=== PATIENT | female | born 1995 | race Caucasian/White ===

== ENCOUNTER 2016-10-19 00:30 | Emergency (ER) | payer OTHER ==
[~2016-10-19] VITALS: Ht 165.1 cm; Wt 50.0 kg
[~2016-10-19 00:30] MED LIST: CELEXA40 MG PO; DEPO-PROVER150 MG/M1 IM; SEROQUEL300 MG PO
[2016-10-19 00:34] VITALS: BP 108/65; PULSE 88; TEMP 97.9
== END 2016-10-19 02:09 | disposition home or self-care (01) ==
LOC: COL.ER 00:30
DX: S83.92XA Sprain of unspecified site of left knee, initial encounter (principal)

== ENCOUNTER → 2016-10-30 | Outpatient (CLI) | payer OTHER ==
[~2016-10-30] MED LIST changes: +KLONOPIN 1MG1 MG PO; +ZYPREXA10 MG PO
== END ==
LOC: COL.RAD 07:21
DX: S83.095A Other dislocation of left patella, initial encounter (principal); X58.XXXA Exposure to other specified factors, initial encounter

== ENCOUNTER 2017-01-16 20:17 | Observation (INO) | payer OTHER ==
[~2017-01-16] VITALS: Ht 165.1 cm; Wt 45.3 kg
[~2017-01-16 20:17] MED LIST changes: -KLONOPIN 1MG1 MG PO; -ZYPREXA10 MG PO
[2017-01-16 22:07] LABS: BASO # 0.1 (0.0-0.2); BASO % 0.6 % (0.0-2.0); EOS # 0.2 (0.0-0.7); EOS % 2.6 % (0-4.0); GRAN # 4.9 (1.4-6.5); GRAN % 61.8 % (42.2-75.2); HEMATOCRIT 41.4 % (37.0-47.0); HEMOGLOBIN 13.9 g/dl (12.5-16.0); LYMPH % 24.5 % (20.0-51.0); MEAN CELL VOLUME 92 fl (80.0-100.0); MEAN CORPUSCULAR HEMOGLOBIN 31 pg (27.0-31.0); MEAN CORPUSCULAR HGB CONC 34 g/dl (33.0-37.0); MEAN PLATELET VOLUME 10.2 fl (7.4-10.4); MONO # 0.8 (0.1-0.6); MONO % 10.4 % (1.7-9.3); PLATELET COUNT 248 K/mm3 (130-400); RED BLOOD COUNT 4.52 M/mm3 (4.10-5.30); REDCELL DISTRIBUTION WIDTH-CV 14.1 % (11.5-14.5)
[2017-01-16 22:18] LABS: ACETAMINOPHEN < 10 ug/mL (10-30); ADJUSTED CALCIUM 9.5 mg/dL (8.4-10.2); ALANINE AMINOTRANSFERASE 33 U/L (9-52); ALKALINE PHOSPHATASE 86 U/L (50-136); ANION GAP 15 mmol/L (7-16); BILIRUBIN,TOTAL 1.3 mg/dL (0.0-1.0); BLOOD UREA NITROGEN 12 mg/dL (7-17); CALCIUM 10.3 mg/dL (8.4-10.2); CARBON DIOXIDE 27 mmol/L (22-30); CHLORIDE 101 mmol/L (98-107); GLUCOSE 97 mg/dL (74-106); POTASSIUM 3.8 mmol/L (3.4-5.0); SALICYLATE < 1.0 mg/dL; SODIUM 143 mmol/L (137-145); TOTAL PROTEIN 8.3 gm/dL (6.4-8.2)
[2017-01-17 04:00] VITALS: BP 110/67; PULSE 69; TEMP 98.2
[2017-01-17 11:33] VITALS: BP 111/65; PULSE 99; TEMP 97.3
[2017-01-18] VITALS (9 sets, daily range): BP systolic 107; BP diastolic 77; PULSE 61; TEMP 97.5; O2SAT 85–100
[2017-01-18 04:03] LABS: AMPHETAMINE URINE NEGATIVE; BARBITURATES URINE NEGATIVE; BENZODIAZEPINES URINE NEGATIVE; BUPRENORPHINE URINE NEGATIVE; METHADONE URINE NEGATIVE; OPIATES URINE NEGATIVE; OXYCODONE URINE NEGATIVE; PHENCYCLIDINE URINE NEGATIVE; PROPOXYPHENE URINE NEGATIVE; THC CANNABINOIDS URINE POSITIVE
[2017-01-18] MEDS ORDERED: KLONOPIN 1MG1 MG PO (12:57)
[2017-01-18] MEDS ORDERED: ZYPREXA10 MG PO (12:58)
== END 2017-01-18 10:30 ==
LOC: COL.ER 20:17 → MEDICAL 01-17 00:11 → ICU 01-17 15:03
PROVIDERS: Emergency Medicine
DX: F29 Unspecified psychosis not due to a substance or known physiological condition (principal); F12.90 Cannabis use, unspecified, uncomplicated
CPT/HCPCS: G0378

== ENCOUNTER 2017-01-18 12:09 | Observation (INO) | payer OTHER ==
[~2017-01-18] VITALS: Ht 160 cm; Wt 45.5 kg
[2017-01-18 12:52] VITALS: BP 107/77; PULSE 67; TEMP 36.4
[2017-01-18] MEDS ORDERED: KLONOPIN 1MG1 MG PO (12:57)
[2017-01-18] MEDS ORDERED: ZYPREXA10 MG PO (12:58)
== END 2017-01-18 15:50 ==
LOC: ICU 12:09
DX: F29 Unspecified psychosis not due to a substance or known physiological condition (principal); F12.90 Cannabis use, unspecified, uncomplicated
CPT/HCPCS: 90791-AI; G0378; G0379